=== PATIENT | female | born 1975 | race Caucasian/White ===

== ENCOUNTER 2018-08-25 09:27 | Emergency (ER) | payer MEDICAID, SELFPAY ==
[2018-08-25 09:29] VITALS: BP 122/40; PULSE 117; RESP 18; TEMP 36.6; O2SAT 100; BMI 22.2
--- NOTE | 2018-08-25 10:02 | EKG12_ITS ---
Test Reason : GENERAL ILLNESS Blood Pressure : / mmHG Vent. Rate : 096 BPM Atrial Rate : 096 BPM P-R Int : 140 ms QRS Dur : 084 ms QT Int : 394 ms P-R-T Axes : 079 033 036 degrees QTc Int : 497 ms Normal sinus rhythm Biatrial enlargement Possible Lateral infarct , age undetermined Abnormal ECG Confirmed by KATHY DUKES, BULL ([id number]), video tape editor ABRAHAM MARTE ([id number]) on 08/27/2018 9:16:16 AM Referred By: CARMEN Confirmed By:BULL CHAVEZ MD
--- NOTE | 2018-08-25 10:15 | RAD_ITS ---
STUDY: X-RAY CHEST REASON FOR EXAM: Female, 42 years old. Chest pain and shortness of breath. TECHNIQUE: Single AP portable view of the chest. COMPARISON: None. FINDINGS: The lungs are clear and expanded. There is no demonstrated pleural abnormality. Normal size heart. Normal mediastinum and chandra. Normal visualized pulmonary arteries. Normal visualized aortic arch and descending thoracic aorta. Normal visualized thoracic spine. Normal visualized ribs, clavicles, and shoulders. There is no demonstrated abnormality of the visualized soft tissue structures of the upper abdomen. RAD/Chest 1 View (Portable) IMPRESSION: Normal x-ray examination of the chest. Electronically Signed: Yvon Cabral, at 10:40 EDT , Service support ,
[2018-08-25] MEDS: Ondansetron 4 MG/2 ML Vial IV (10:35)
[2018-08-25] MEDS: 0.9% Normal Saline 1,000 ML 1000 ML IV (10:35)
[2018-08-25] MEDS: Ketorolac 30 MG/ML Syringe IV (10:36)
[2018-08-25 10:39] VITALS: BP 159/98; PULSE 100; RESP 20; O2SAT 100
[2018-08-25 10:47] LABS: Absolute Lymphocyte Count 1.09 X10^3/ul (0.83-4.51); Absolute Neutrophil Count 6.1 X10^3/uL (2.0-7.7); Basophil# 0.01 X10^3/uL; Basophil% 0.1 % (0-1); Eosinophil# 0.02 X10^3/uL; Eosinophils% 0.3 % (0-5); Hematocrit 44.6 % (37-47); Hemoglobin 16.1 g/dl (12.0-15.0); Lymphocyte # 1.09 X10^3/ul (4.0); Lymphocyte % 14.2 % (19-41); Mean Corp Hgb Conc 36.1 g/gl (32-36); Mean Corpuscular Volume 85.9 fL (81-99); Mean Platelet Vol. 8.5 fl (6.2-12.0); Monocyte# 0.45 X10^3/uL; Monocyte% 5.8 % (0-10); Neutrophil % 79.2 % (47-70); Platelet Count 453 K/mm3 (150-450); RBC Distribution Width CV 12.1 % (11.6-14.6); RBC Distribution Width SD 37.8 fl (35.1-43.9); Red Blood Count 5.19 M/mm3 (4.2-5.4); White Blood Count 7.7 K/mm3 (4.4-11.0)
[2018-08-25 10:48] LABS: POSITIVE COUNT NO; POSITIVE DIFFERENTIAL NO; POSITIVE MORPHOLOGY NO
[2018-08-25 11:00] LABS: Internal QC Validated? YES +Cl - CLEAR BKGD; Pregnancy, Serum, hCG Quali. NEGATIVE Negative
[2018-08-25 11:04] LABS: D-Dimer Quantitative (DVT/PE) < 0.27 FEU/ug/m (0.27-0.49)
[2018-08-25 11:11] LABS: ALB/GLOB Ratio 1.1 RATIO (0.9-2.4); AST(SGOT) 16 U/L (15-37); Alanine Aminotransfer ALT/SGPT 41 U/L (13-56); Albumin, Serum 4.3 g/dL (3.2-5.0); Alkaline Phosphatase 92 U/L (45-117); Anion Gap 13 (5-15); BUN 17 mg/dL (7-18); Calcium,Total 9.7 mg/dL (8.5-10.1); Chloride 103 mmol/L (98-107); Creatinine, Serum 0.94 mg/dL (0.55-1.02); EST Glomerular Filtration Rate 69 mL/min (>60); Est Glom Filt Rate - Afr Amer 83 mL/min (>60); Estimated Creatinine Clearance 81.48 ml/min; Globulin 3.9 g/dL (2.2-4.2); Glucose 110 mg/dL (74-106); Potassium 3.4 mmol/L (3.5-5.1); Protein, Total 8.2 g/dL (6.4-8.2); Sodium Level 139 mmol/L (136-145)
--- NOTE | 2018-08-25 12:23 | ED.DCSUM_ITS ---
- ER Visit Summary Date of Service: 08/25/18 Chief Complaint: Chest pain History of Present Illness: The patient is a [address] Torres. She reports that she has chest pain that began 2 days ago. It is a constant pain is 9 out of 10 severity. This is unchanged by exertion. It is worsened by deep breaths or movement. Nothing makes this better. She reports the nausea from the ones. No blood or emesis. She does report she is been mildly short of breath. She denies any diaphoresis. Of note patient reports she was discharged from [facility] yesterday after a 9-day stay following being confused after snorting heroin. She denies any IV drug abuse for approximately 3 years. Physical Examination: Vitals: Stable. Afebrile. General: Well-nourished and well-developed. Head: Normocephalic atraumatic. Neck: Supple, no lymphadenopathy. No JVD. Nontender. Cardiovascular: Regular rate and rhythm. No murmurs. Respiratory: No respiratory distress. Clear to auscultation bilaterally. Mild tenderness palpation of costochondral margin bilaterally does reproduce her pain. Abdominal: Soft, nontender, nondistended, normal bowel sounds. No guarding, rebound, or peritoneal signs. Back: Nontender. Extremities: Nontender, no edema. Skin: Normal color, no rash. No track butt. Neurologic: Alert and oriented ?3. Cranial nerves II through XII are intact. Normal strength and sensation. Psych: Normal affect. Test Results: EKG is sinus at [address] changes. There is no old EKG for comparison. Troponin is negative. D-dimer is negative. test is negative. LFTs marked total bili 1.5. Chem-7 marked potassium 3.4 and glucose 110. CBC is marked for a hemoglobin of 16.1, 7 neutrophils 79, monocytes 14. Chest x-ray is normal. Emergency Department Course and Treatment: Patient was treated Zofran and Toradol IV. She is resting comfortably. Treatment Plan: Patient has had 2 days of constant chest pain is not exertional. I feel she is a suitable candidate for further outpatient evaluation. Should be discharged with Zofran and naproxen. Instructed to follow-up her primary care physician 1 to 2 days if not improving. Return to the emergency department for any worsening symptoms. Disposition: To home in improved and stable condition. Impression: 1. Atypical chest pain. This note was generated with Ac[employer] dictation software. It may contain incorrect words, spelling, and punctuation that were not noted in review of the chart prior to signing ED Disposition - Plan for ED Patient: Disposition: Home or Assisted Living Instructions: ED Chest Pain Atypical Unkn Cause Prescriptions: Ondansetron [Zofran Odt] 4 mg PO Q8H PRN PRN #10 tablet PRN Reason: Nausea Naproxen [Naprosyn] 500 mg PO BID #14 tablet Referrals: Doctor,Your [STAFF PHYSICIAN] - 3-5 Days
[2018-08-25 12:51] VITALS: BP 141/78; PULSE 87; RESP 16; O2SAT 97
== END 2018-08-25 12:52 | disposition home or self-care (01) ==
LOC: ED 10:53
PROVIDERS: Emergency Provider Emergency Medicine
DX: R07.89 Other chest pain (principal); R11.2 Nausea with vomiting, unspecified; R53.1 Weakness; R06.02 Shortness of breath; I10 Essential (primary) hypertension; F17.210 Nicotine dependence, cigarettes, uncomplicated
CPT/HCPCS: 71045; 80053; 84484; 84703; 85025; 85379; 93005; 96361; 96374; 96375; 99285; J7030; A4216; J2405

== ENCOUNTER 2019-01-03 14:07 | Emergency (ER) | payer MEDICAID, SELFPAY ==
[2019-01-03 14:08] VITALS: BP 123/82; PULSE 112; RESP 16; TEMP 36.6; O2SAT 100; BMI 25.1
[2019-01-03 14:21] VITALS: BP 131/70; PULSE 90; RESP 14; TEMP 36.6; O2SAT 98
--- NOTE | 2019-01-03 14:40 | ED.VISSUMM ---
- ER Visit Summary Date of Service: 01/03/19 Chief Complaint: Vaginal discharge and vaginal welts no history of prior STD. History of Present Illness: The patient is a 43 F with a past medical history depression. States that she has a 5-day history of vaginal welts. Also vaginal discharge. She denies bleeding. She denies any history of STD. She denies any dysuria. States she is never had anything like this before. Physical Examination: No acute distress vital vital signs and afebrile. HEENT exam unremarkable. Neck nontender. Lungs clear to auscultation bilaterally. Heart regular rhythm no murmur. Abdomen is soft and nontender. Normal bowel sounds no peritoneal signs. Remedies moves all 4. Skin unremarkable. Back unremarkable. Neurologically she is awake and alert. Pelvic exam will be done with female nurse present in the room. Acute herpetic outbreak. She also was discharged treatment complete the speculum or bimanual exam due to the amount of pain she is having. She does appear to be discharged. No vaginal bleeding. Test Results: None Emergency Department Course and Treatment: Patient be treated for the vaginal discharge is potentially gonorrhea chlamydia. Severe with Rocephin and Zithromax. Patient was started on Famvir for an acute herpetic outbreak. Treatment Plan: Famvir 3 times daily for 1 week. Follow-up with POLITICAL SCIENCE RESEARCH ASSISTANT. Disposition: dc Impression: Acute vaginal lesion secondary to acute initial herpes outbreak Vaginal discharge rule out gonorrhea and/or chlamydia This note was generated with [email or web address] dictation software. It may contain incorrect words, spelling, and punctuation that were not noted in review of the chart prior to signing ED Disposition - Plan for ED Patient: Referrals: [facility] Doctor,Out of [NON-STAFF] -
--- NOTE | 2019-01-03 16:18 | ED.DEP ---
ED Disposition - Plan for ED Patient: Disposition: Home or Assisted Living Instructions: Herpes Genitalis, Hsv: Type Ii Prescriptions: Famciclovir [Famvir] 500 mg PO TID #21 tab Prescription Printed Hydrocodone/Acetaminophen [[place] 7.5-325 Tablet] 1 ea PO 4X/DAY PRN PRN 5 Days #20 tab PRN Reason: Pain/Inflammation Prescription Printed Referrals: Rosamaria Vazquez MD [STAFF PHYSICIAN] - As soon as possible Additional Instructions: Famvir used to treat the herpes outbreak. [place] and Motrin for pain. Worn all sexual partners to be checked. The discharge could potentially be diarrhea chlamydia you were treated for both with the Rocephin shot and the oral Zithromax. You need to follow-up with your COMMERCIAL DRONE SOFTWARE DEVELOPER doctor for further evaluation.
[2019-01-03] MEDS: Azithromycin 250 MG Tablet 1000 MG PO (16:58)
[2019-01-03] MEDS: Ceftriaxone 500 MG Vial 250 MG IM (16:58)
[2019-01-03 17:03] VITALS: RESP 16
== END 2019-01-03 17:26 | disposition home or self-care (01) ==
PROVIDERS: Emergency Provider Emergency Medicine
DX: B00.9 Herpesviral infection, unspecified (principal)
CPT/HCPCS: 96372; 99283

== ENCOUNTER 2020-04-11 14:54 | Inpatient (IN) | payer MEDICAID, SELFPAY ==
[2020-04-11 14:55] VITALS: BP 135/95; PULSE 100; RESP 18; TEMP 35.4; O2SAT 100; BMI 25.8
--- NOTE | 2020-04-11 15:23 | ED.RN ---
PER DR RODRIGEZ, NO SITTER NEEDED. PT REQUESTING ASSISTANCE WITH SUBSTANCE ABUSE
--- NOTE | 2020-04-11 15:32 | ED.VIS.GEN ---
History of Present Illness Chief Complaint: Substance Abuse Past Medical History - Allergies and Home Meds Allergies/Adverse Reactions: Allergies No Known Allergies Allergy (Verified 04/11/20 14:54) Primary Care Physician: Óscar Davidson MD [Primary Care Provider] - Smoking Status: Current every day smoker Physical Exam Vital Signs/Narrative: Vital Signs Temp Pulse Resp BP Pulse Ox 04/11/20 14:55 95.8 F L 100 18 135/95 H 100 ED Disposition - Plan for ED Patient: Referrals: Óscar Davidson MD [Primary Care Provider] -
--- NOTE | 2020-04-11 15:33 | ED.DCSUM_ITS ---
History of Present Illness Chief Complaint: Substance Abuse Informant: Patient Narrative: 44-year-old female presents for the evaluation of heroin withdrawal. Patient has been using heroin on and off for years. She states that she last tried to get clean a couple years ago and was sporadically using. Now she has been using pretty consistently for about 5 weeks but does not want to keep using so in the past week she has decided to cut back. She states that she feels paresthesias nausea fatigue headache. She states that she called [facility] and they recommended her starting in the emergency department. She denies suicidal homicidal ideation. She takes Cymbalta and hydroxyzine for anxiety depression. Past Medical History - Allergies and Home Meds Allergies/Adverse Reactions: Allergies No Known Allergies Allergy (Verified 04/11/20 14:54) Primary Care Physician: Óscar Davidson MD [Primary Care Provider] - Past Medical History: - - Depression and anxiety. Opiate abuse Surgical History: noncontributory Smoking Status: Current every day smoker Alcohol: Rare Drugs: Heroin Review of Systems General: Reports: Chills, Malaise. Denies: Fever, Sweats Eyes: Denies: Visual changes - bilaterally, Diplopia ENT: Denies: Rhinorrhea, Sore throat Cardiovascular: Denies: Chest pain, Palpitations Respiratory: Denies: Dyspnea, Cough, Dyspnea on exertion Gastrointestinal: Reports: Nausea. Denies: Abdominal pain, Vomiting, Diarrhea, Melena, Hematochezia Genitourinary: Denies: Dysuria, Hematuria, Frequency Musculoskeletal: Reports: Myalgias. Denies: Back pain, Extremity Pain Skin: Denies: Rash, Wounds Neurological: Reports: Headache. Denies: Weakness, Numbness Physical Exam Vital Signs/Narrative: Vital Signs Temp Pulse Resp BP Pulse Ox 04/11/20 14:55 95.8 F L 100 18 135/95 H 100 Inital Vital Signs reviewed: Yes General: Well nourished, Well developed, No Acute Distress Head: Normocephalic, Atraumatic Eyes: Perrl, EOMI ENT: Moist mucous membranes, No rhinorrhea Neck: Supple, Nontender Cardiovascular: Regular rate, Regular rhythm, No murmurs Respiratory: No distress, CTA bilaterally, Chest nontender Abdomen: Soft, Nontender, Nondistended, Normal bowel sounds Back: Nontender, Normal Inspection Extremities: Nontender, No edema Skin: Normal color, No rash Neurological: Alert, Oriented x3, Cranial nerves II-XII grossly intact, Normal Strength, Normal Sensation Psychological: Normal affect, Normal Mood Diagnostic/Tx/Re-eval - EKG Initial EKG Interpretation: Sinus Rhythm - EKG demonstrates a normal sinus rhythm at a rate of 75 without a concerning features of ACS - Medical Decision Making Patient states that she is amendable to the rules and regulations of inpatient rehab. Hospitalist will be contacted. ED Disposition - Plan for ED Patient: Disposition: Acute Care Hospital [facility] Diagnosis: Opiate withdrawal, Opiate addiction Referrals: Óscar Davidson MD [Primary Care Provider] -
--- NOTE | 2020-04-11 15:49 | EKG12_ITS ---
Test Reason : DRUG USUAGE Blood Pressure : / mmHG Vent. Rate : 075 BPM Atrial Rate : 075 BPM P-R Int : 154 ms QRS Dur : 088 ms QT Int : 412 ms P-R-T Axes : 062 021 028 degrees QTc Int : 460 ms Normal sinus rhythm Normal ECG Confirmed by POOJA DUKES, COLUMBA ([id number]), manuscript editor MALAIKA SALAZAR ([id number]) on 04/16/2020 11:09:02 AM Referred By: RAIN Confirmed By:GEORGIA PATTON MD
--- NOTE | 2020-04-11 16:28 | NURSING ---
MED SURG ENRIQUEONIS OPIATE ADDICTION/ WITHDRAWAL
[2020-04-11 16:29] VITALS: BP 124/81; PULSE 84; RESP 18; TEMP 36.4; O2SAT 100
[2020-04-11 16:30] VITALS: BP 124/81; PULSE 84; RESP 18; TEMP 36.4; O2SAT 100
[2020-04-11 16:33] VITALS: BMI 25.8
[2020-04-11 16:34] LABS: Absolute Lymphocyte Count 1.17 X10^3/uL (0.83-4.51); Absolute Neutrophil Count 3.7 X10^3/uL (2.0-7.7); Basophil# 0.01 X10^3/uL; Basophil% 0.2 % (0-1); Eosinophil# 0.03 X10^3/uL; Eosinophils% 0.6 % (0-5); Hematocrit 40.3 % (37-47); Hemoglobin 13.2 g/dL (12.0-15.0); Lymphocyte # 1.17 X10^3/ul (4.0); Lymphocyte % 22.6 % (19-41); Mean Corp Hgb Conc 32.8 g/dL (32-36); Mean Corpuscular Hgb 28.8 pg (27.0-32.0); Mean Corpuscular Volume 87.8 fL (81-99); Mean Platelet Vol. 8.2 fl (6.2-12.0); Monocyte# 0.27 X10^3/uL; Monocyte% 5.2 % (0-10); NRBC Flagged by Analyzer 0 % (0-5); Neutrophil # 3.68 X10^3/uL (2.7-7.7); Platelet Count 275 K/mm3 (150-450); RBC Distribution Width CV 12.3 % (11.6-14.6); RBC Distribution Width SD 39.7 fl (35.1-43.9); Red Blood Count 4.59 M/mm3 (4.2-5.4); White Blood Count 5.2 K/mm3 (4.4-11.0)
[2020-04-11 16:41] LABS: Internal QC Validated? YES +Cl - CLEAR BKGD; Pregnancy, Serum, hCG Quali. NEGATIVE Negative
--- NOTE | 2020-04-11 16:42 | PCM.HP.STD ---
History of Present Illness Date of Admission: 04/11/20 Chief Complaint: Opiate withdrawal The patient is a 44 year old F with a PMH as below who presents to the hospital with opiate withdrawal. She states that she uses IV heroin and then transition to snorting heroin, she has been trying to get off of it herself and been tapering however she started having some increased symptoms with anxiety and restlessness as well as nausea. Her last use was this morning which she states has helped a little bit but she still with significant symptoms. She denies any other medical issues other than depression and anxiety which she takes medications for. She is willing to follow-up with [facility] as an outpatient for rehab as necessary. Past Medical History Allergies No Known Allergies Allergy (Verified 04/11/20 14:54) Home Medications: Ambulatory Orders Medication Instructions Recorded Duloxetine HCl 60 mg PO DAILY 04/11/20 Hydroxyzine HCl 50 mg PO Q6H PRN 04/11/20 Surgical History: noncontributory Smoking Status: Current every day smoker Tobacco Use: Cigarettes Alcohol: Rare Drugs: Heroin - *Family History Maternal History Items: Cancer Paternal History Items: Cancer Review of Systems Constitutional: Reports: Fatigue. Denies: Chills, Fever, Weight Change HEENT: Reports: Head Aches. Denies: Sinus Congestion, Sinus Drainage Cardiovascular: Denies: Chest Pain, Palpitations Respiratory: Denies: Cough, Shortness of breath at rest, Sputum production Gastrointestinal: Reports: Nausea. Denies: Abdominal Pain, Vomiting Genitourinary: Denies: Dysuria Musculoskeletal: Denies: Joint Pain, Joint Tenderness Skin: Denies: Rash, Wounds Neurological: Denies: Numbness, Tingling, Focal weakness Psychiatric: Reports: Anxiety. Denies: Depression Hematologic/ Lymphatic: Denies: Easy Bruising, Easy Bleeding VTE Information - Inpt Only VTE Present on Admission: No - Physical Exam Vitals/I&O's: Vital Signs Temp Pulse Resp BP Pulse Ox 97.5 F L 84 18 124/81 H 100 04/11/20 16:30 04/11/20 16:30 04/11/20 16:30 04/11/20 16:30 04/11/20 16:30 Oxygen Delivery Method Room Air Weight: 175 lb Body Mass Index (BMI) 25.8 General: Alert, Oriented x3, Cooperative, No apparent distress, - HEENT: Atraumatic, PERRLA, EOMI, Normocephalic Oral: Moist Mucosa Neck: Supple, No JVD Lungs: Clear to auscultation, Normal air movement, No rhonchi, No wheeze, No rales Cardiovascular: Regular rate, Regular Rhythm, Normal S1, Normal S2, No murmurs Abdomen: Soft, Non Tender, Non-Distended, No Hepato-splenomegaly Extremities: No edema, Capillary Refill Less than 3 Seconds Skin: No rashes, No breakdown Neurological: Neuro grossly intact, Sensory exam intact to light touch and pain Psych/Mental Status: Anxious, Restless Laboratory Results 04/11/20 16:25: WBC 5.2, RBC 4.59, Hgb 13.2, Hct 40.3, MCV 87.8, MCH 28.8, MCHC 32.8, RDW Std Deviation 39.7, RDW Coeff of Kera 12.3, Plt Count 275, MPV 8.2, Immature Gran % (Auto) 0.400, Neut % (Auto) 71.0 H, Lymph % (Auto) 22.6, [place] % (Auto) 5.2, Eos % (Auto) 0.6, Baso % (Auto) 0.2, Absolute Neuts (auto) 3.7, Absolute Lymphs (auto) 1.17, Nucleated RBC % 0 04/11/20 16:25: Sodium Pending, Potassium Pending, Chloride Pending, Carbon Dioxide Pending, Anion Gap Pending, BUN Pending, Creatinine Pending, Est GFR (MDRD) Af Amer Pending, Est GFR (MDRD) Non-Af Pending, BUN/Creatinine Ratio Pending, Glucose Pending, Calcium Pending, Total Bilirubin Pending, AST Pending, ALT Pending, Alkaline Phosphatase Pending, Total Protein Pending, Albumin Pending 04/11/20 16:25: Ethyl Alcohol Pending 04/11/20 16:25: Serum , Qual NEGATIVE Assessment/Plan All Active Problems Opiate withdrawal (Acute) Opiate addiction (Acute) 1. Acute opiate withdrawal/tobacco abuse/anxiety/depression -We will continue with her Cymbalta -Continue with the opiate withdrawal protocol -Follow-up with [facility] -Discussed tobacco cessation, she does not want a nicotine patch at this time DVT: Ambulation Inpatient E&M: 46336 Init Hosp L2
--- NOTE | 2020-04-11 16:42 | PCS.PANDOC ---
PANDEMIC DOCUMENTATION INITIATED: Date: 04/11/2020 Time: 1640
[2020-04-11 16:44] LABS: Alcohol, Blood (Medical)-Serum < 3.0 mg/dL
[2020-04-11 16:49] LABS: ALB/GLOB Ratio 1.1 RATIO (0.9-2.4); AST(SGOT) 11 U/L (15-37); Alanine Aminotransfer ALT/SGPT 28 U/L (13-56); Albumin, Serum 3.4 g/dL (3.2-5.0); Alkaline Phosphatase 83 U/L (45-117); Anion Gap 5 (5-15); BUN 6 mg/dL (7-18); BUN/Creat Ratio 8.6 RATIO (10-20); Calcium,Total 8.6 mg/dL (8.5-10.1); Chloride 107 mmol/L (98-107); Creatinine, Serum 0.69 mg/dL (0.55-1.02); EST Glomerular Filtration Rate 97 mL/min (>60); Est Glom Filt Rate - Afr Amer 118 mL/min (>60); Estimated Creatinine Clearance 108.73 ml/min; Globulin 3.2 g/dL (2.2-4.2); Glucose 98 mg/dL (74-106); Potassium 3.4 mmol/L (3.5-5.1); Protein, Total 6.6 g/dL (6.4-8.2); Sodium Level 140 mmol/L (136-145)
[2020-04-11 16:56] VITALS: BMI 24.9
[2020-04-11 17:01] VITALS: BP 114/80; PULSE 70; RESP 16; TEMP 36.9; O2SAT 100
[2020-04-11] MEDS: Ondansetron 8 MG Tablet PO (17:32)
[2020-04-11] MEDS: Methocarbamol 750 MG Tablet 1500 MG PO (17:32)
[2020-04-11] MEDS: Buprenorphine HCl 2 MG TAB.SUBL SL (17:32)
[2020-04-11] MEDS: Acetaminophen 325 MG Tablet 650 MG PO (20:23)
[2020-04-11] MEDS: hydrOXYzine PAM 25 MG Capsule 50 MG PO (20:23)
[2020-04-11] MEDS: traZODone 100 MG Tablet PO (22:42)
[2020-04-11 23:00] VITALS: BP 110/63; PULSE 83; RESP 16; TEMP 37.2; O2SAT 100
[2020-04-12] MEDS: Buprenorphine HCl 2 MG TAB.SUBL SL ×3 (01:22→17:58)
[2020-04-12 04:25] VITALS: BP 116/67; PULSE 79; RESP 16; TEMP 36.8; O2SAT 99
--- NOTE | 2020-04-12 08:00 | PCM.PN.HOSP ---
Reason for Visit: Follow-up for ACUTE opioid withdrawal syndrome Objective: Patient is admitted with acute opioid withdrawal syndrome. Patient currently uses heroin through his snorting but was using IV in the past. Denies history of HIV, chronic hep C or hep B. Denies any serious complication including osteomyelitis, endocarditis. She had one abscess on the left forearm in the past She feels anxious and restlessness, muscle aches and nausea. Denies hallucinations or delusions. Physical exam General: Alert, Oriented x3, Cooperative HEENT: Atraumatic, PERRLA, EOMI, Normocephalic Oral: No Gingival or Mucosal Lesions/ Ulcerations Neck: Supple, No JVD, Negative Carotid Bruits Lungs: Air entry equal in bilateral lung bases. No crepitation/rhonchi Cardiovascular: Regular rate, Regular Rhythm, Normal S1, Normal S2, No murmurs Abdomen: Bowel Sounds Present, Soft, Non Tender, Non-Distended : No renal angle tenderness. No suprapubic tenderness. Extremities: No edema, Capillary Refill Less than 3 Seconds Skin: No rashes, No breakdown Musculoskeletal: No Tenderness to Palpation of Joints or Extremities Neurological: Cranial nerves II-XII grossly intact, Deep Tendon Reflexes 2+/4 and Symmetrical, Neuro grossly intact Psych/Mental Status: Normal Affect, Appropriate. Vitals/I&O's: Vital Signs Temp Pulse Resp BP Pulse Ox 98.3 F 79 16 116/67 99 04/12/20 04:25 04/12/20 04:25 04/12/20 04:25 04/12/20 04:25 04/12/20 04:25 Oxygen Delivery Method Room Air Weight: 168 lb 10.458 oz Body Mass Index (BMI) 24.9 Intake and Output for Last 24 Hours 04/10/20 04/11/20 04/12/20 23:59 23:59 23:59 Intake Total 250 / 1050 1040 / 1040 Balance 250 / 1050 1040 / 1040 Laboratory Results 04/11/20 16:25: WBC 5.2, RBC 4.59, Hgb 13.2, Hct 40.3, MCV 87.8, MCH 28.8, MCHC 32.8, RDW Std Deviation 39.7, RDW Coeff of Kera 12.3, Plt Count 275, MPV 8.2, Immature Gran % (Auto) 0.400, Neut % (Auto) 71.0 H, Lymph % (Auto) 22.6, [place] % (Auto) 5.2, Eos % (Auto) 0.6, Baso % (Auto) 0.2, Absolute Neuts (auto) 3.7, Absolute Lymphs (auto) 1.17, Nucleated RBC % 0 04/11/20 16:25: Sodium 140, Potassium 3.4 L, Chloride 107, Carbon Dioxide 28.0, Anion Gap 5, BUN 6 L, Creatinine 0.69, Estim Creat Clear Calc 108.73, Est GFR (MDRD) Af Amer 118, Est GFR (MDRD) Non-Af 97, BUN/Creatinine Ratio 8.6 L, Glucose 98, Calcium 8.6, Total Bilirubin 0.60, AST 11 L, ALT 28, Alkaline Phosphatase 83, Total Protein 6.6, Albumin 3.4, Globulin 3.2, Albumin/Globulin Ratio 1.1 04/11/20 16:25: Ethyl Alcohol < 3.0 04/11/20 16:25: Serum , Qual NEGATIVE Current Medications Acetaminophen (Acetaminophen 325 Mg Tablet) 650 mg PO Q6H PRN PRN PRN Reason: Pain 1-10 or Fever Last Admin: 04/11/20 20:23 Dose: 650 mg Documented by: Buprenorphine HCl (Buprenorphine Hcl 2 Mg Tab.Subl) 4 mg SL Q8H CJ; Taper Stop: 04/14/20 17:29 Last Admin: 04/12/20 01:22 Dose: 4 mg Documented by: Clonidine (Clonidine Hcl 0.1 Mg Tablet) 0.1 mg PO Q8H PRN PRN PRN Reason: RESTLESSNESS Dicyclomine HCl (Dicyclomine 10 Mg Capsule) 20 mg PO Q6H PRN PRN PRN Reason: Abdominal Discomfort Duloxetine HCl (Duloxetine Hcl 60 Mg Capsule) 60 mg PO DAILY CJ Gabapentin (Gabapentin 300 Mg Capsule) 300 mg PO Q8H PRN PRN PRN Reason: moderate to severe anxiety Hydroxyzine Pamoate (Hydroxyzine Jeanine 25 Mg Capsule) 50 mg PO Q6H PRN PRN PRN Reason: mild anxiety Last Admin: 04/11/20 20:23 Dose: 50 mg Documented by: Loperamide HCl (Loperamide 2 Mg Capsule) 2 mg PO Q4H PRN PRN PRN Reason: LOOSE STOOLS Methocarbamol (Methocarbamol 750 Mg Tablet) 1,500 mg PO Q6H PRN PRN PRN Reason: MUSCLE SPASM Last Admin: 04/11/20 17:32 Dose: 1,500 mg Documented by: Nutritional Formula (Lactose Free) (Ensure Enlive 120 Ml Liquid) 120 ml PO 4X/DAY CJ Last Admin: 04/11/20 20:25 Dose: 120 ml Documented by: Ondansetron HCl (Ondansetron 8 Mg Tablet) 8 mg PO Q8H PRN PRN PRN Reason: NAUSEA Last Admin: 04/11/20 17:32 Dose: 8 mg Documented by: Sodium Chloride (0.9% Saline Lock 10 Ml Syringe) 10 - 40 ml IV UD PRN PRN Reason: SALINE FLUSH Trazodone HCl (Trazodone 100 Mg Tablet) 100 mg PO QHS PRN PRN PRN Reason: INSOMNIA Last Admin: 04/11/20 22:42 Dose: 100 mg Documented by: STROKE Vital Signs/Narrative: Vital Signs Temp Pulse Resp BP Pulse Ox 04/12/20 04:25 98.3 F 79 16 116/67 99 Medical Necessity - Tobacco Use Smoking Status: Current every day smoker Tobacco Use: Cigarettes Assessment/Plan All Active Problems Opiate withdrawal (Acute) Opiate addiction (Acute) This 44 question female admitted with acute opioid withdrawal. 1. Acute opiate withdrawal with history of chronic opioid/heroin use disorder, tolerance and dependence: Patient is on buprenorphine and other supportive medications including gabapentin hydroxyzine, methocarbamol as needed. Discontinue IV fluid. Follow-up with 118 hours. 2. Anxiety and depression: Patient on Cymbalta. Also on trazodone at night. 3. Chronic tobacco use/chronic smoking: Discussed tobacco cessation. She does not want nicotine patch. VTE prophylaxis: Low risk early ambulation encouraged. No prophylaxis indicated. Inpatient E&M: 87019 Subs Hosp L2
--- NOTE | 2020-04-12 09:07 | ADDICTION ---
This health science writer attempted to meet with PT in her room to administer ASAM, AUDIT and MSE examinations and to begin planning for discharge. PT requested to complete assessments tomorrow, 04/13/20. This health science writer briefly spoke with PT about d/c plans. PT states that she would like to admit into residential treatment at [facility] upon d/c from [facility]. This health science writer will begin referral process in preparation for meeting tomorrow. [facility] SW and CM notified.
[2020-04-12 09:22] VITALS: BP 99/65; PULSE 73; RESP 16; TEMP 36.4; O2SAT 98
[2020-04-12 09:23] VITALS: PULSE 90
[2020-04-12] MEDS: DULoxetine Hcl 60 MG Capsule PO (09:27)
[2020-04-12] MEDS: Ondansetron 8 MG Tablet PO (09:28)
--- NOTE | 2020-04-12 13:15 | CASEMGMT ---
Social Work Note SW reviewed chart. Mental Health order was placed on 04/11/20 at 14:59. Per nursing documentation at 15:23 on 04/11/2020, pt was cleared for suicide sitter. Pt is RAMP pt. Aminta with [employer] attempted to see pt today, Aminta will be in tomorrow to complete full assessment with pt. Miguelina Newsome [employer] G[employer] MECHANIC, RN PEDIATRIC
[2020-04-12] MEDS: Methocarbamol 750 MG Tablet 1500 MG PO ×2 (13:23→21:29)
[2020-04-12] MEDS: Dicyclomine 10 MG Capsule 20 MG PO ×2 (13:23→21:29)
[2020-04-12] MEDS: Gabapentin 300 MG Capsule PO ×2 (13:24→21:29)
[2020-04-12 16:37] VITALS: BP 103/62; PULSE 80; RESP 16; TEMP 37.4; O2SAT 99
[2020-04-12 22:00] VITALS: BP 100/50; PULSE 82; RESP 16; TEMP 36.9; O2SAT 96
[2020-04-13] MEDS: traZODone 100 MG Tablet PO ×2 (01:40→23:13)
[2020-04-13] MEDS: Buprenorphine HCl 2 MG TAB.SUBL SL ×3 (01:40→17:07)
[2020-04-13 04:00] VITALS: BP 99/52; PULSE 82; RESP 16; TEMP 37.1; O2SAT 97
--- NOTE | 2020-04-13 08:43 | PN_ITS ---
Reason for Visit: Follow-up for acute opioid withdrawal Objective: Patient still feels nauseous but no vomiting. Diffuse body aches and pains Physical exam General: Alert, Oriented x3, Cooperative HEENT: Atraumatic, PERRLA, EOMI, Normocephalic Oral: No Gingival or Mucosal Lesions/ Ulcerations Neck: Supple, No JVD, Negative Carotid Bruits Lungs: Air entry diminished in bilateral lung bases. No crepitation/rhonchi Cardiovascular: Regular rate, Regular Rhythm, Normal S1, Normal S2, No murmurs Abdomen: Bowel Sounds Present, Soft, Non Tender, Non-Distended : No renal angle tenderness. No suprapubic tenderness. Extremities: No edema, Capillary Refill Less than 3 Seconds Skin: No rashes, No breakdown Musculoskeletal: No Tenderness to Palpation of Joints or Extremities Neurological: Cranial nerves II-XII grossly intact, Deep Tendon Reflexes 2+/4 and Symmetrical, Neuro grossly intact Psych/Mental Status: Normal Affect, Appropriate. Vitals/I&O's: Vital Signs Temp Pulse Resp BP Pulse Ox 98.7 F 82 16 99/52 L 97 04/13/20 04:00 04/13/20 04:00 04/13/20 04:00 04/13/20 04:00 04/13/20 04:00 Oxygen Delivery Method Room Air Weight: 168 lb 10.458 oz Body Mass Index (BMI) 24.9 Intake and Output for Last 24 Hours 04/11/20 04/12/20 04/13/20 23:59 23:59 23:59 Intake Total 250 / 1050 1040 / 1340 780 / 780 Balance 250 / 1050 1040 / 1340 780 / 780 Current Medications Acetaminophen (Acetaminophen 325 Mg Tablet) 650 mg PO Q6H PRN PRN PRN Reason: Pain 1-10 or Fever Last Admin: 04/11/20 20:23 Dose: 650 mg Documented by: Buprenorphine HCl (Buprenorphine Hcl 2 Mg Tab.Subl) 2 mg SL Q8H [facility]; Taper Stop: 04/14/20 17:29 Last Admin: 04/13/20 01:40 Dose: 2 mg Documented by: Clonidine (Clonidine Hcl 0.1 Mg Tablet) 0.1 mg PO Q8H PRN PRN PRN Reason: RESTLESSNESS Dicyclomine HCl (Dicyclomine 10 Mg Capsule) 20 mg PO Q6H PRN PRN PRN Reason: Abdominal Discomfort Last Admin: 04/12/20 21:29 Dose: 20 mg Documented by: Duloxetine HCl (Duloxetine Hcl 60 Mg Capsule) 60 mg PO DAILY [facility] Last Admin: 04/12/20 09:27 Dose: 60 mg Documented by: Gabapentin (Gabapentin 300 Mg Capsule) 300 mg PO Q8H PRN PRN PRN Reason: moderate to severe anxiety Last Admin: 04/12/20 21:29 Dose: 300 mg Documented by: Hydroxyzine Pamoate (Hydroxyzine Jeanine 25 Mg Capsule) 50 mg PO Q6H PRN PRN PRN Reason: mild anxiety Last Admin: 04/11/20 20:23 Dose: 50 mg Documented by: Loperamide HCl (Loperamide 2 Mg Capsule) 2 mg PO Q4H PRN PRN PRN Reason: LOOSE STOOLS Methocarbamol (Methocarbamol 750 Mg Tablet) 1,500 mg PO Q6H PRN PRN PRN Reason: MUSCLE SPASM Last Admin: 04/12/20 21:29 Dose: 1,500 mg Documented by: Nutritional Formula (Lactose Free) (Ensure Enlive 120 Ml Liquid) 120 ml PO 4X/DAY [facility] Last Admin: 04/12/20 21:29 Dose: 120 ml Documented by: Ondansetron HCl (Ondansetron 8 Mg Tablet) 8 mg PO Q8H PRN PRN PRN Reason: NAUSEA Last Admin: 04/12/20 09:28 Dose: 8 mg Documented by: Sodium Chloride (0.9% Saline Lock 10 Ml Syringe) 10 - 40 ml IV UD PRN PRN Reason: SALINE FLUSH Trazodone HCl (Trazodone 100 Mg Tablet) 100 mg PO QHS PRN PRN PRN Reason: INSOMNIA Last Admin: 04/13/20 01:40 Dose: 100 mg Documented by: Medical Necessity - Tobacco Use Smoking Status: Current every day smoker Tobacco Use: Cigarettes Assessment/Plan All Active Problems Opiate withdrawal (Acute) Opiate addiction (Acute) This 44 question female admitted with acute opioid withdrawal. 1. Acute opiate withdrawal with history of chronic opioid/heroin use disorder, tolerance and dependence: Patient is on buprenorphine and other supportive medications including gabapentin hydroxyzine, methocarbamol as needed. Discontinue IV fluid. 04/13: Patient still has withdrawal symptoms and she feels worse than yesterday. Denies hallucinations, delusions or weird dreams. Discussed with the 180 nurse and she requested to keep over the weekend as she is planning for inpatient transfer for drug rehab. 2. Anxiety and depression: Patient on Cymbalta. Continue trazodone at night. 3. Chronic tobacco use/chronic smoking: Discussed tobacco cessation. She does not want nicotine patch. VTE prophylaxis: Low risk early ambulation encouraged. No prophylaxis indicated. Inpatient E&M: [id number] Subs Hosp L2
[2020-04-13 09:07] VITALS: BP 91/54; PULSE 78; RESP 16; TEMP 36.8; O2SAT 96
[2020-04-13] MEDS: Acetaminophen 325 MG Tablet 650 MG PO ×2 (09:21→20:53)
[2020-04-13] MEDS: DULoxetine Hcl 60 MG Capsule PO (09:21)
[2020-04-13] MEDS: Ondansetron 8 MG Tablet PO (09:21)
--- NOTE | 2020-04-13 10:19 | ADDICTION ---
This sba underwriter met with PT in her room to complete ASAM, MSE and DUDIT assessments and to begin d/c planning. All assessments completed, faxed and placed in PT chart. D/C Plan completed- PT to directly admit into [facility] residential on 04/16/20 after completing medical w/d mgmt. This sba underwriter collaborated with PT's hospitalist who confirmed that he will keep her at [facility] until direct admit on 04/16. PT amiable. Residential referral made.
[2020-04-13 13:56] VITALS: BP 104/61; PULSE 82; RESP 16; TEMP 37.3; O2SAT 97
[2020-04-13] MEDS: Gabapentin 300 MG Capsule PO ×2 (14:00→23:15)
[2020-04-13 17:00] VITALS: BP 104/56; PULSE 86; RESP 18; TEMP 36.7; O2SAT 99
[2020-04-13] MEDS: Ibuprofen 600 MG Tablet PO (17:07)
[2020-04-13 20:45] VITALS: BP 102/61; PULSE 78; RESP 18; TEMP 37.1; O2SAT 98
[2020-04-13] MEDS: Senna Tablet 2 TABLET PO (20:53)
[2020-04-13] MEDS: hydrOXYzine PAM 25 MG Capsule 50 MG PO (20:53)
[2020-04-14] VITALS (7 sets, daily range): BP systolic 81–113; BP diastolic 41–73; PULSE 66–87; RESP 16–18; TEMP 36.2–37.5; O2SAT 97–100
[2020-04-14] MEDS: Buprenorphine HCl 2 MG TAB.SUBL SL (05:26)
[2020-04-14] MEDS: 0.9% Normal Saline 1,000 ML 999 ML IV (06:58)
--- NOTE | 2020-04-14 08:47 | NURSING ---
Bolus completed and pt is sitting up in bed eating breakfast. She is encouraged to increase po intake of fluids.
[2020-04-14] MEDS: Dicyclomine 10 MG Capsule 20 MG PO (09:35)
[2020-04-14] MEDS: DULoxetine Hcl 60 MG Capsule PO (09:36)
[2020-04-14] MEDS: Ondansetron 8 MG Tablet PO (13:28)
--- NOTE | 2020-04-14 14:04 | PCM.PN.HOSP ---
Reason for Visit: Follow-up for acute opioid withdrawal Objective: Patient is still having opioid withdrawal syndromes including anxiety, mild tremor, restlessness diffuse body aches and pain although denies hallucinations, delusions or psychological symptoms Physical exam General: Awake, Oriented x3, Cooperative HEENT: Atraumatic, PERRLA, EOMI, Normocephalic Oral: No Gingival or Mucosal Lesions/ Ulcerations Neck: Supple, No JVD, Negative Carotid Bruits Lungs: Air entry equal in bilateral lung bases. No crepitation/rhonchi Cardiovascular: Regular rate, Regular Rhythm, Normal S1, Normal S2, No murmurs Abdomen: Bowel Sounds Present, Soft, Non Tender, Non-Distended : No renal angle tenderness. No suprapubic tenderness. Extremities: No edema, Capillary Refill Less than 3 Seconds Skin: No rashes, No breakdown Musculoskeletal: No Tenderness to Palpation of Joints or Extremities Neurological: Cranial nerves II-XII grossly intact, Deep Tendon Reflexes 2+/4 and Symmetrical, Neuro grossly intact Psych/Mental Status: Normal Affect, Appropriate. Vitals/I&O's: Vital Signs Temp Pulse Resp BP Pulse Ox 98.5 F 70 16 95/51 L 100 04/14/20 13:29 04/14/20 13:29 04/14/20 13:29 04/14/20 13:29 04/14/20 13:29 Oxygen Delivery Method Room Air Weight: 168 lb 10.458 oz Body Mass Index (BMI) 24.9 Intake and Output for Last 24 Hours 04/12/20 04/13/20 04/14/20 23:59 23:59 23:59 Intake Total 1040 / 1340 1380 / 1380 2099 Balance 1040 / 1340 1380 / 1380 2099 Current Medications Acetaminophen (Acetaminophen 325 Mg Tablet) 650 mg PO Q6H PRN PRN PRN Reason: Pain 1-10 or Fever Last Admin: 04/13/20 20:53 Dose: 650 mg Documented by: Al Hydroxide/Mg Hydroxide (Mag Hydrox/Al Hydrox/Simeth 30 Ml Udc) 30 ml PO Q6H PRN PRN PRN Reason: dyspesia Bisacodyl (Bisacodyl 10 Mg Suppository) 10 mg RECTAL DAILY PRN PRN Reason: Constipation Buprenorphine HCl (Buprenorphine Hcl 2 Mg Tab.Subl) 2 mg SL Q12H [facility]; Taper Stop: 04/14/20 17:29 Last Admin: 04/14/20 05:26 Dose: 2 mg Documented by: Clonidine (Clonidine Hcl 0.1 Mg Tablet) 0.1 mg PO Q8H PRN PRN PRN Reason: RESTLESSNESS Dicyclomine HCl (Dicyclomine 10 Mg Capsule) 20 mg PO Q6H PRN PRN PRN Reason: Abdominal Discomfort Last Admin: 04/14/20 09:35 Dose: 20 mg Documented by: Duloxetine HCl (Duloxetine Hcl 60 Mg Capsule) 60 mg PO DAILY [facility] Last Admin: 04/14/20 09:36 Dose: 60 mg Documented by: Gabapentin (Gabapentin 300 Mg Capsule) 300 mg PO Q8H PRN PRN PRN Reason: moderate to severe anxiety Last Admin: 04/13/20 23:15 Dose: 300 mg Documented by: Hydroxyzine Pamoate (Hydroxyzine Jeanine 25 Mg Capsule) 50 mg PO Q6H PRN PRN PRN Reason: mild anxiety Last Admin: 04/13/20 20:53 Dose: 50 mg Documented by: Ibuprofen (Ibuprofen 600 Mg Tablet) 600 mg PO Q8H PRN PRN PRN Reason: Pain Score 1-10 Last Admin: 04/13/20 17:07 Dose: 600 mg Documented by: Loperamide HCl (Loperamide 2 Mg Capsule) 2 mg PO Q4H PRN PRN PRN Reason: LOOSE STOOLS Methocarbamol (Methocarbamol 750 Mg Tablet) 1,500 mg PO Q6H PRN PRN PRN Reason: MUSCLE SPASM Last Admin: 04/12/20 21:29 Dose: 1,500 mg Documented by: Metoclopramide HCl (Metoclopramide 10 Mg Tablet) 10 mg PO Q6H PRN PRN PRN Reason: nausea/vomiting Nicotine (Nicotine 21 Mg Patch) 21 mg TD DAILY [facility] Last Admin: 04/14/20 09:35 Dose: 21 mg Documented by: Nutritional Formula (Lactose Free) (Ensure Enlive 120 Ml Liquid) 120 ml PO 4X/DAY [facility] Last Admin: 04/14/20 13:26 Dose: 120 ml Documented by: Ondansetron HCl (Ondansetron 8 Mg Tablet) 8 mg PO Q8H PRN PRN PRN Reason: NAUSEA Last Admin: 04/14/20 13:28 Dose: 8 mg Documented by: Senna (Senna Tablet) 2 tablet PO QHS PRN PRN Reason: Constipation Last Admin: 04/13/20 20:53 Dose: 2 tablet Documented by: Sodium Chloride (0.9% Saline Lock 10 Ml Syringe) 10 - 40 ml IV UD PRN PRN Reason: SALINE FLUSH Trazodone HCl (Trazodone 100 Mg Tablet) 100 mg PO QHS PRN PRN PRN Reason: INSOMNIA Last Admin: 04/13/20 23:13 Dose: 100 mg Documented by: STROKE Vital Signs/Narrative: Vital Signs Temp Pulse Resp BP Pulse Ox 04/14/20 13:29 98.5 F 70 16 95/51 L 100 Medical Necessity - Tobacco Use Smoking Status: Current every day smoker Tobacco Use: Cigarettes Assessment/Plan All Active Problems Opiate withdrawal (Acute) Opiate addiction (Acute) This 44 question female admitted with acute opioid withdrawal. 1. Acute opiate withdrawal with history of chronic opioid/heroin use disorder, tolerance and dependence: Patient is on buprenorphine and other supportive medications including gabapentin hydroxyzine, methocarbamol as needed. Discontinue IV fluid. 04/13: Patient still has withdrawal symptoms and she feels worse than yesterday. Denies hallucinations, delusions or weird dreams. Discussed with the 180 nurse and she requested to keep over the weekend as she is planning for inpatient transfer for drug rehab. 04/14: Continue buprenorphine along with other supportive medications including gabapentin, duloxetine and methocarbamol. The patient will stay over the weekend for inpatient rehab transfer on Thursday. 2. Anxiety and depression: Patient on Cymbalta. Continue trazodone at night. 3. Chronic tobacco use/chronic smoking: Discussed tobacco cessation. She does not want nicotine patch. VTE prophylaxis: Low risk early ambulation encouraged. No prophylaxis indicated. Active Medications Acetaminophen (Acetaminophen 325 Mg Tablet) 650 mg PO Q6H PRN PRN PRN Reason: Pain 1-10 or Fever Last Admin: 04/13/20 20:53 Dose: 650 mg Documented by: Al Hydroxide/Mg Hydroxide (Mag Hydrox/Al Hydrox/Simeth 30 Ml Udc) 30 ml PO Q6H PRN PRN PRN Reason: dyspesia Bisacodyl (Bisacodyl 10 Mg Suppository) 10 mg RECTAL DAILY PRN PRN Reason: Constipation Buprenorphine HCl (Buprenorphine Hcl 2 Mg Tab.Subl) 2 mg SL Q12H [facility]; Taper Stop: 04/14/20 17:29 Last Admin: 04/14/20 05:26 Dose: 2 mg Documented by: Clonidine (Clonidine Hcl 0.1 Mg Tablet) 0.1 mg PO Q8H PRN PRN PRN Reason: RESTLESSNESS Dicyclomine HCl (Dicyclomine 10 Mg Capsule) 20 mg PO Q6H PRN PRN PRN Reason: Abdominal Discomfort Last Admin: 04/14/20 09:35 Dose: 20 mg Documented by: Duloxetine HCl (Duloxetine Hcl 60 Mg Capsule) 60 mg PO DAILY [facility] Last Admin: 04/14/20 09:36 Dose: 60 mg Documented by: Gabapentin (Gabapentin 300 Mg Capsule) 300 mg PO Q8H PRN PRN PRN Reason: moderate to severe anxiety Last Admin: 04/13/20 23:15 Dose: 300 mg Documented by: Hydroxyzine Pamoate (Hydroxyzine Jeanine 25 Mg Capsule) 50 mg PO Q6H PRN PRN PRN Reason: mild anxiety Last Admin: 04/13/20 20:53 Dose: 50 mg Documented by: Ibuprofen (Ibuprofen 600 Mg Tablet) 600 mg PO Q8H PRN PRN PRN Reason: Pain Score 1-10 Last Admin: 04/13/20 17:07 Dose: 600 mg Documented by: Loperamide HCl (Loperamide 2 Mg Capsule) 2 mg PO Q4H PRN PRN PRN Reason: LOOSE STOOLS Methocarbamol (Methocarbamol 750 Mg Tablet) 1,500 mg PO Q6H PRN PRN PRN Reason: MUSCLE SPASM Last Admin: 04/12/20 21:29 Dose: 1,500 mg Documented by: Metoclopramide HCl (Metoclopramide 10 Mg Tablet) 10 mg PO Q6H PRN PRN PRN Reason: nausea/vomiting Nicotine (Nicotine 21 Mg Patch) 21 mg TD DAILY [facility] Last Admin: 04/14/20 09:35 Dose: 21 mg Documented by: Nutritional Formula (Lactose Free) (Ensure Enlive 120 Ml Liquid) 120 ml PO 4X/DAY [facility] Last Admin: 04/14/20 13:26 Dose: 120 ml Documented by: Ondansetron HCl (Ondansetron 8 Mg Tablet) 8 mg PO Q8H PRN PRN PRN Reason: NAUSEA Last Admin: 04/14/20 13:28 Dose: 8 mg Documented by: Senna (Senna Tablet) 2 tablet PO QHS PRN PRN Reason: Constipation Last Admin: 04/13/20 20:53 Dose: 2 tablet Documented by: Sodium Chloride (0.9% Saline Lock 10 Ml Syringe) 10 - 40 ml IV UD PRN PRN Reason: SALINE FLUSH Trazodone HCl (Trazodone 100 Mg Tablet) 100 mg PO QHS PRN PRN PRN Reason: INSOMNIA Last Admin: 04/13/20 23:13 Dose: 100 mg Documented by: Inpatient E&M: [id number] Subs Hosp L2
[2020-04-14] MEDS: Methocarbamol 750 MG Tablet 1500 MG PO (15:44)
[2020-04-14] MEDS: Ibuprofen 600 MG Tablet PO (15:45)
[2020-04-14] MEDS: Lactated Ringers 1,000 ML 999 ML IV (16:54)
[2020-04-14] MEDS: Gabapentin 300 MG Capsule PO (20:22)
[2020-04-14] MEDS: traZODone 100 MG Tablet PO (22:41)
[2020-04-14] MEDS: Senna Tablet 2 TABLET PO (22:42)
[2020-04-14] MEDS: tiZANidine HCl 2 MG Tablet PO (22:42)
[2020-04-14] MEDS: hydrOXYzine PAM 25 MG Capsule 50 MG PO (22:42)
[2020-04-15 06:31] VITALS: BP 91/50; PULSE 72; RESP 16; TEMP 37; O2SAT 99
--- NOTE | 2020-04-15 08:27 | PN_ITS ---
Reason for Visit: Follow-up for acute withdrawal syndrome secondary to opioids/heroin Objective: Patient has low blood pressure baseline, systolic 100. Patient blood pressure is not much improved even after Ringer lactate bolus given yesterday. Still has significant withdrawal symptoms mainly anxiety, restlessness muscle aches and pains. Patient currently has constipation. Physical exam General: Alert, Oriented x3, Cooperative, lethargic. HEENT: Atraumatic, PERRLA, EOMI, Normocephalic Oral: No Gingival or Mucosal Lesions/ Ulcerations Neck: Supple, No JVD, Negative Carotid Bruits Lungs: Air entry diminished in bilateral lung bases. No crepitation/rhonchi Cardiovascular: Regular rate, Regular Rhythm, Normal S1, Normal S2, No murmurs Abdomen: Bowel Sounds Present, Soft, Non Tender, Non-Distended : No renal angle tenderness. No suprapubic tenderness. Extremities: No edema, Capillary Refill Less than 3 Seconds Skin: No rashes, No breakdown Musculoskeletal: No Tenderness to Palpation of Joints or Extremities Neurological: Cranial nerves II-XII grossly intact, Deep Tendon Reflexes 2+/4 and Symmetrical, Neuro grossly intact Psych/Mental Status: Normal Affect, Appropriate. Vitals/I&O's: Vital Signs Temp Pulse Resp BP Pulse Ox 98.6 F 72 16 91/50 L 99 04/15/20 06:31 04/15/20 06:31 04/15/20 06:31 04/15/20 06:31 04/15/20 06:31 Oxygen Delivery Method Room Air Weight: 168 lb 10.458 oz Body Mass Index (BMI) 24.9 Intake and Output for Last 24 Hours 04/13/20 04/14/20 04/15/20 23:59 23:59 23:59 Intake Total 1380 / 1380 4350 / 4350 Balance 1380 / 1380 4350 / 4350 Current Medications Acetaminophen (Acetaminophen 325 Mg Tablet) 650 mg PO Q6H PRN PRN PRN Reason: Pain 1-10 or Fever Last Admin: 04/13/20 20:53 Dose: 650 mg Documented by: Al Hydroxide/Mg Hydroxide (Mag Hydrox/Al Hydrox/Simeth 30 Ml Udc) 30 ml PO Q6H PRN PRN PRN Reason: dyspesia Bisacodyl (Bisacodyl 10 Mg Suppository) 10 mg RECTAL DAILY PRN PRN Reason: Constipation Clonidine (Clonidine Hcl 0.1 Mg Tablet) 0.1 mg PO Q8H PRN PRN PRN Reason: RESTLESSNESS Dicyclomine HCl (Dicyclomine 10 Mg Capsule) 20 mg PO Q6H PRN PRN PRN Reason: Abdominal Discomfort Last Admin: 04/14/20 09:35 Dose: 20 mg Documented by: Duloxetine HCl (Duloxetine Hcl 60 Mg Capsule) 60 mg PO DAILY [facility] Last Admin: 04/14/20 09:36 Dose: 60 mg Documented by: Gabapentin (Gabapentin 300 Mg Capsule) 300 mg PO Q8H PRN PRN PRN Reason: moderate to severe anxiety Last Admin: 04/14/20 20:22 Dose: 300 mg Documented by: Hydroxyzine Pamoate (Hydroxyzine Jeanine 25 Mg Capsule) 50 mg PO Q6H PRN PRN PRN Reason: mild anxiety Last Admin: 04/14/20 22:42 Dose: 50 mg Documented by: Ibuprofen (Ibuprofen 600 Mg Tablet) 600 mg PO Q8H PRN PRN PRN Reason: Pain Score 1-10 Last Admin: 04/14/20 15:45 Dose: 600 mg Documented by: Loperamide HCl (Loperamide 2 Mg Capsule) 2 mg PO Q4H PRN PRN PRN Reason: LOOSE STOOLS Metoclopramide HCl (Metoclopramide 10 Mg Tablet) 10 mg PO Q6H PRN PRN PRN Reason: nausea/vomiting Nicotine (Nicotine 21 Mg Patch) 21 mg TD DAILY [facility] Last Admin: 04/14/20 09:35 Dose: 21 mg Documented by: Nutritional Formula (Lactose Free) (Ensure Enlive 120 Ml Liquid) 120 ml PO 4X/DAY [facility] Last Admin: 04/14/20 22:41 Dose: 120 ml Documented by: Ondansetron HCl (Ondansetron 8 Mg Tablet) 8 mg PO Q8H PRN PRN PRN Reason: NAUSEA Last Admin: 04/14/20 13:28 Dose: 8 mg Documented by: Senna (Senna Tablet) 2 tablet PO QHS PRN PRN Reason: Constipation Last Admin: 04/14/20 22:42 Dose: 2 tablet Documented by: Sodium Chloride (0.9% Saline Lock 10 Ml Syringe) 10 - 40 ml IV UD PRN PRN Reason: SALINE FLUSH Tizanidine HCl (Tizanidine Hcl 2 Mg Tablet) 2 mg PO Q8H PRN PRN PRN Reason: muscle cramps Last Admin: 04/14/20 22:42 Dose: 2 mg Documented by: Trazodone HCl (Trazodone 100 Mg Tablet) 100 mg PO QHS PRN PRN PRN Reason: INSOMNIA Last Admin: 04/14/20 22:41 Dose: 100 mg Documented by: STROKE Vital Signs/Narrative: Vital Signs Temp Pulse Resp BP Pulse Ox 04/15/20 06:31 98.6 F 72 16 91/50 L 99 Medical Necessity - Tobacco Use Smoking Status: Current every day smoker Tobacco Use: Cigarettes Assessment/Plan All Active Problems Opiate withdrawal (Acute) Opiate addiction (Acute) This 44 question female admitted with acute opioid withdrawal. 1. Acute opiate withdrawal with history of chronic opioid/heroin use disorder, tolerance and dependence: Patient is on buprenorphine and other supportive medications including gabapentin hydroxyzine, methocarbamol as needed. Discontinue IV fluid. 04/13: Patient still has withdrawal symptoms and she feels worse than yesterday. Denies hallucinations, delusions or weird dreams. Discussed with the 180 nurse and she requested to keep over the weekend as she is planning for inpatient transfer for drug rehab. 04/14: Continue buprenorphine along with other supportive medications including gabapentin, duloxetine and methocarbamol. The patient will stay over the weekend for inpatient rehab transfer on Thursday. 04/15: Patient completed buprenorphine last night but still has withdrawal symptoms therefore buprenorphine continued. She has restless leg therefore pramipexole added. Zanaflex added yesterday in place of methocarbamol. Hydroxyzine was decreased because of low blood pressure. Patient has baseline low blood pressure around systolic 100. Senna S, MiraLAX, Dulcolax oral and suppository for constipation. 2. Anxiety and depression: Patient on Cymbalta. Continue trazodone at night. 3. Chronic tobacco use/chronic smoking: Discussed tobacco cessation. She does not want nicotine patch. VTE prophylaxis: Low risk early ambulation encouraged. No prophylaxis indicated. Inpatient E&M: [id number] [facility] [place] Hosp L2
[2020-04-15] MEDS: Ibuprofen 600 MG Tablet PO ×2 (09:02→18:04)
[2020-04-15 09:30] VITALS: BP 100/66; PULSE 78; RESP 16; TEMP 36.4; O2SAT 99
[2020-04-15] MEDS: Pramipexole Di-HCl 0.25 MG Tablet PO ×3 (10:28→22:32)
[2020-04-15] MEDS: Senna/Docusate Sodium 1 Tablet 2 TABLET PO ×2 (10:28→21:17)
[2020-04-15] MEDS: tiZANidine HCl 2 MG Tablet PO ×2 (10:28→22:32)
[2020-04-15] MEDS: Polyethylene Glycol 3350 17 GM PACKET PO (10:28)
[2020-04-15] MEDS: Bisacodyl 5 MG Tablet PO (10:28)
[2020-04-15] MEDS: DULoxetine Hcl 60 MG Capsule PO (10:29)
[2020-04-15] MEDS: Buprenorphine HCl 2 MG TAB.SUBL SL (13:57)
[2020-04-15] MEDS: hydrOXYzine PAM 25 MG Capsule PO ×2 (16:15→22:32)
[2020-04-15 17:00] VITALS: BP 102/54; PULSE 74; RESP 18; TEMP 37; O2SAT 99
[2020-04-15] MEDS: Ondansetron 8 MG Tablet PO (18:04)
[2020-04-15] MEDS: Dicyclomine 10 MG Capsule 20 MG PO (21:18)
[2020-04-15] MEDS: traZODone 100 MG Tablet PO (22:32)
[2020-04-15 23:00] VITALS: BP 123/80; PULSE 80; RESP 16; TEMP 36.9; O2SAT 100
[2020-04-16] MEDS: Buprenorphine HCl 2 MG TAB.SUBL SL (02:01)
[2020-04-16 05:30] VITALS: BP 107/74; PULSE 75; RESP 14; TEMP 36.7; O2SAT 98
[2020-04-16] MEDS: Pramipexole Di-HCl 0.25 MG Tablet PO (05:48)
[2020-04-16 08:41] LABS: Vitamin D,25 Hydroxy 17.8 ng/mL
[2020-04-16 10:00] VITALS: BP 114/61; PULSE 80; RESP 18; TEMP 36.7; O2SAT 97
[2020-04-16] MEDS: DULoxetine Hcl 60 MG Capsule PO (10:06)
[2020-04-16] MEDS: Polyethylene Glycol 3350 17 GM PACKET PO (10:06)
[2020-04-16] MEDS: Senna/Docusate Sodium 1 Tablet 2 TABLET PO (10:07)
[2020-04-16] MEDS: Ibuprofen 600 MG Tablet PO (10:13)
[2020-04-16] MEDS: cloNIDine HCl 0.1 MG Tablet PO (10:13)
--- NOTE | 2020-04-16 10:15 | ADDICTION ---
PT to d/c today. PT plans to directly admit into [facility] inpatient. [facility] to provide transportation at 11:45am. PT amiable.
--- NOTE | 2020-04-16 11:00 | DCINST_ITS ---
You will use the following diet at home:: No restrictions Your food should be the consistency of: Regular Allergies/Adverse Reactions: Allergies No Known Allergies Allergy (Verified 04/11/20 14:54) Medications to take at Discharge Duloxetine HCl 60 mg PO DAILY 04/11/20 Hydroxyzine HCl 50 mg PO Q6H PRN 04/11/20 Primary Care Physician: Óscar Davidson MD [Primary Care Provider] - Within 2 Weeks Test Results: Test results from this visit will be discussed in further detail at your follow- up appointment, if applicable. Please Follow Up With: [facility] When: today Proposed Discharge Date: 04/16/20
--- NOTE | 2020-04-16 11:01 | PCM.DC.SUM ---
Discharge Date and Diagnosis Date of Admission: 04/11/20 Date of Discharge: 04/16/20 - Primary Discharge Diagnosis Acute Problems: acute opiate withdrawal Hospital Course and Treatment Operations: None Procedures: None Summary of Care Provided: The patient is a 44 year old F presents seeking acute opiate withdrawal. Patient uses IV and then resumed to snorting heroin and attempt to taper herself off. On the day of admission, patient had used but was experiencing symptoms. Patient was admitted and started on buprenorphine for acute opiate withdrawal. Patient's course was uncomplicated but patient did complete her buprenorphine taper but still had symptoms so she did receive additional buprenorphine. Patient was evaluated by addiction medicine and plan is for the patient be discharged with 180 today to continue with her addiction treatment. [] - Physical Exam Vitals/I&O's: Vital Signs Temp Pulse Resp BP Pulse Ox 36.7 C 80 18 114/61 97 04/16/20 10:00 04/16/20 10:00 04/16/20 10:00 04/16/20 10:00 04/16/20 10:00 Oxygen Delivery Method Room Air Weight: 76.5 kg Body Mass Index (BMI) 24.9 Intake and Output for Last 24 Hours 04/14/20 04/15/20 04/16/20 23:59 23:59 23:59 Intake Total 4350 / 4350 2150 / 2150 Balance 4350 / 4350 2150 / 2150 General: Alert, No apparent distress HEENT: Atraumatic, Normocephalic Psych/Mental Status: Normal Affect, Appropriate Laboratory Results 04/16/20 04:06: Vitamin D 25-Hydroxy 17.8 Current Medications Acetaminophen (Acetaminophen 325 Mg Tablet) 650 mg PO Q6H PRN PRN PRN Reason: Pain 1-10 or Fever Last Admin: 04/13/20 20:53 Dose: 650 mg Documented by: Al Hydroxide/Mg Hydroxide (Mag Hydrox/Al Hydrox/Simeth 30 Ml Udc) 30 ml PO Q6H PRN PRN PRN Reason: dyspesia Bisacodyl (Bisacodyl 10 Mg Suppository) 10 mg RECTAL DAILY PRN PRN Reason: Constipation Bisacodyl (Bisacodyl 5 Mg Tablet) 5 mg PO DAILY PRN PRN PRN Reason: Severe constipation Last Admin: 04/15/20 10:28 Dose: 5 mg Documented by: Clonidine (Clonidine Hcl 0.1 Mg Tablet) 0.1 mg PO Q8H PRN PRN PRN Reason: RESTLESSNESS Last Admin: 04/16/20 10:13 Dose: 0.1 mg Documented by: Dicyclomine HCl (Dicyclomine 10 Mg Capsule) 20 mg PO Q6H PRN PRN PRN Reason: Abdominal Discomfort Last Admin: 04/15/20 21:18 Dose: 20 mg Documented by: Duloxetine HCl (Duloxetine Hcl 60 Mg Capsule) 60 mg PO DAILY [facility] Last Admin: 04/16/20 10:06 Dose: 60 mg Documented by: Gabapentin (Gabapentin 300 Mg Capsule) 300 mg PO Q8H PRN PRN PRN Reason: moderate to severe anxiety Last Admin: 04/14/20 20:22 Dose: 300 mg Documented by: Hydroxyzine Pamoate (Hydroxyzine Jeanine 25 Mg Capsule) 25 mg PO Q6H PRN PRN PRN Reason: mild anxiety Last Admin: 04/15/20 22:32 Dose: 25 mg Documented by: Ibuprofen (Ibuprofen 600 Mg Tablet) 600 mg PO Q8H PRN PRN PRN Reason: Pain Score 1-10 Last Admin: 04/16/20 10:13 Dose: 600 mg Documented by: Loperamide HCl (Loperamide 2 Mg Capsule) 2 mg PO Q4H PRN PRN PRN Reason: LOOSE STOOLS Metoclopramide HCl (Metoclopramide 10 Mg Tablet) 10 mg PO Q6H PRN PRN PRN Reason: nausea/vomiting Nicotine (Nicotine 21 Mg Patch) 21 mg TD DAILY [facility] Last Admin: 04/16/20 10:16 Dose: Not Given Documented by: Nutritional Formula (Lactose Free) (Ensure Enlive 120 Ml Liquid) 120 ml PO 4X/DAY [facility] Last Admin: 04/16/20 10:06 Dose: Not Given Documented by: Ondansetron HCl (Ondansetron 8 Mg Tablet) 8 mg PO Q8H PRN PRN PRN Reason: NAUSEA Last Admin: 04/15/20 18:04 Dose: 8 mg Documented by: Polyethylene Glycol (Polyethylene Glycol 3350 17 Gm Packet) 17 gm PO DAILY [facility] Last Admin: 04/16/20 10:06 Dose: 17 gm Documented by: Pramipexole Dihydrochloride (Pramipexole Di-Hcl 0.25 Mg Tablet) 0.25 mg PO TID [facility] Last Admin: 04/16/20 05:48 Dose: 0.25 mg Documented by: Senna/Docusate Sodium (Senna/Docusate Sodium 1 Tablet) 2 tablet PO BID CJ Stop: 04/17/20 10:01 Last Admin: 04/16/20 10:07 Dose: 2 tablet Documented by: Sodium Chloride (0.9% Saline Lock 10 Ml Syringe) 10 - 40 ml IV UD PRN PRN Reason: SALINE FLUSH Tizanidine HCl (Tizanidine Hcl 2 Mg Tablet) 2 mg PO Q8H PRN PRN PRN Reason: muscle cramps Last Admin: 04/15/20 22:32 Dose: 2 mg Documented by: Trazodone HCl (Trazodone 100 Mg Tablet) 100 mg PO QHS PRN PRN PRN Reason: INSOMNIA Last Admin: 04/15/20 22:32 Dose: 100 mg Documented by: Discharge Diet: No Restrictions Discharge Activity: Return to Normal Activity Home Medications: Medications to take at Discharge Duloxetine HCl 60 mg PO DAILY 04/11/20 Hydroxyzine HCl 50 mg PO Q6H PRN 04/11/20 Primary Care Physician: Óscar Davidson MD [Primary Care Provider] - Within 2 Weeks Please Follow Up With: [facility] When: today Disposition: Home Minutes spent on discharge:: 24 Patient Condition:: Good Medical Necessity - Tobacco Use Smoking Status: Current every day smoker Tobacco Use: Cigarettes Meaningful Use Info Meaningful Use Diagnoses (Choose all that apply): None applicable Inpatient E&M: 79763 Disch Hosp
--- NOTE | 2020-04-16 11:29 | PHA.DC.MR ---
Pharmacy Service has performed discharge medication reconciliation for this patient. The patient's discharge medication list was reviewed for discrepancies and discrepancies were resolved. Home Medications Duloxetine HCl 60 mg PO DAILY 04/11/20 Hydroxyzine HCl 50 mg PO Q6H PRN 04/11/20
== END 2020-04-16 11:45 | disposition home or self-care (01) | DRG 773 ==
LOC: ED 16:02 → MS3 16:51
PROVIDERS: Internal Medicine; Admitting Provider Family Medicine; Emergency Provider Emergency Medicine; PCP Internal Medicine
DX: F11.23 Opioid dependence with withdrawal (principal); F17.210 Nicotine dependence, cigarettes, uncomplicated; F32.9 Major depressive disorder, single episode, unspecified; F41.9 Anxiety disorder, unspecified; K59.00 Constipation, unspecified; G25.81 Restless legs syndrome
CPT/HCPCS: 80053; 82077; 82306; 84703; 85025; 93005; 97802; 99285; 99406; J7030; J7120; A4216

== ENCOUNTER 2022-07-25 21:13 | Emergency (ER) | payer MEDICAID, SELFPAY ==
[2022-07-25 21:13] VITALS: BP 132/97; PULSE 86; RESP 18; TEMP 36.6; O2SAT 98; BMI 33.5
--- NOTE | 2022-07-25 21:37 | EX.ED.UPPERE ---
HPI History of Present Illness HPI Narrative: 46-year-old female laceration left small finger at 9:15 AM. Chief Complaint: Laceration Informant: patient Occured/Mechanism Mechanism/Context: Yes injury Onset/Context/Timing Onset: Today and Hours Timing: Continuous Quality of Pain: Dull Current Severity: Mild Maximum Severity: Mild Associated Symptoms Associated Symptoms: Negative for Parasthesia, Weakness or Loss of Funtion Narrative Narrative: 46-year-old female [id number]. She was shaving lunchmeat today and got her left pinky finger lacerated at the tip along the nail. This occurred at 9:15 this morning about 12 hours ago. Unsure of her last tetanus shot. Tetanus Immunization: Unknown Prior similar symptoms: No Recent Illness/Hospitalization: No PFSH PFSH Home Medications duloxetine 60 mg capsule,delayed release 60 mg PO DAILY depression 04/11/20 [History Last Taken Unknown] hydroxyzine HCl 50 mg tablet 50 mg PO Q6H PRN Anxiety 04/11/20 [History Last Taken Unknown] Allergy/AdvReac Type Severity Reaction Status Date / Time No Known Allergies Allergy Verified 07/25/22 21:17 Social History Smoking Status: Current every day smoker tobacco type: smokeless tobacco ROS ROS ED ROS Narrative Denies recent illness. Review of Systems ROS Unobtainable: Denies due to encephalopathy Constitutional Constitutional ED: Denies chills or fever(s) Eyes Eyes: Denies blurry vision ENT ENT ED: Denies ear pain Cardiovascular Cardiovascular: Denies chest pain or palpitations Respiratory/Chest Respiratory/Chest: Denies cough or dyspnea Gastrointestinal Gastrointestinal: Denies abdominal pain Genitourinary Genitourinary ED: Denies dysuria or hematuria Musculoskeletal Musculoskeletal: Denies back pain or myalgias Integumentary Denies abscess or Abrasions Neurologic Neurologic: Denies headache(s) Psychiatric Psychiatric: Denies anxiety Endocrine Endocrinology: Denies cold intolerance Hematologic/Lymphatic Hematologic/Lymphatic: Denies easy bleeding Allergic/Immunologic Allergic/Immunologic ED: Denies mouth swelling or tongue swelling EXAM Physical Exam Narrative Exam Narrative: Well-appearing 46-year-old female. Vital signs stable afebrile. HEENT exam unremarkable. Lungs clear. Heart regular rhythm. Abdomen soft nontender. Moving all 4 extremities. Neurovascular intact. Specifically the left hand left small finger on the ulnar side along the nail she shaved about half an inch by 1/4 inch of the skin off. There is mild oozing. There is really nothing to pull together. There is no deep laceration. No tissue to pull together. No signs of infection. Fingers neurovascular intact with normal touch sensation. Cap refill. And range of motion. Const Vital Signs: 07/25/22 21:13 Temperature 97.8 F Temperature Source Temporal Pulse Rate 86 Respiratory Rate 18 Blood Pressure 132/97 H Blood Pressure Mean 108 Pulse Ox 98 Oxygen Delivery Method Room Air Positive well nourished and well developed; Negative for cachectic, contractures or unkempt General Appearance ED: well developed and NAD; Negative for unkempt, cachectic, contractures, cyanotic or diaphoretic Nutritional Appearance: Negative for cachectic HEENT Reports moist mucous membranes normocephalic and atraumatic; Negative for trauma or tenderness Eyes PERRL and EOMs intact bilaterally Neck full ROM and supple General: Negative for tenderness Lymph Lymphatic: Negative for other Chest Wall inspection of chest normal and palpation of chest normal Chest: Negative for other Resp normal respiratory effort and clear to auscultation bilaterally Effort and Inspection: Negative for pain with movement Auscultation: Negative for rales, rhonchi or wheezes Cardio regular rate, regular rhythm, S1 normal heart sound, S2 normal heart sound and no murmurs Rate: Negative for bradycardia or tachycardic Rhythm: Negative for abnormal rhythm GI non-tender, non-distended and no masses Inspection: Negative for abdominal distention Auscultation: normoactive bowel sounds Palpation: soft; Negative for tender or guarding Back/Spine no CVA tenderness Extremity full ROM; Negative for normal to inspection Extremity Narrative: Laceration distal ulnar side, small finger along the nail. Skin shaved off. No laceration repair. Mild oozing. Neurovascularly intact. No infection. No foreign body. Clean. Dermabond repaired. Was dressed and discharged. Neuro oriented x3, moves all extremities and no focal motor deficits Sensorium / Orientation: alert, oriented to person, oriented to place and oriented to time; Negative for orientation impaired, lethargic or stuporous Motor Exam: strength 5/5 throughout Psych mental status grossly normal Appearance: Negative for unkempt Attitude: No agitated Mood & Affect: Negative for depressed, anxious or tearful Skin General Skin Exam: Negative for petechiae Lesions: no lesions Rashes: no rashes Trauma: laceration; Negative for no lacerations or abrasions MDM MDM MDM Narrative Medical decision making narrative: Patient has a small laceration to the ulnar side of the distal end of her small finger along the nail. Did not need suturing. It was cleaned and Dermabond closed. To be dressed she will be discharged. Tetanus will be updated. Dermabond repair was approximately 1 inch. History & Record Review Discussion w/independent historian: Patient Discharge Plan Triage Chief Complaint: Laceration ED Provider: Rodríguez Stiles Dx/Rx/DC Orders Clinical Impression: Finger laceration Instructions: ED Laceration, Extremity: Skin Glue Prescriptions: No Action hydroxyzine HCl 50 MG tablet 50 mg PO Q6H PRN (Reason: Anxiety) Label Comments: Take 1 tablet by mouth every 6 hours as needed for Anxiety. duloxetine 60 MG capsule,delayed release(DR/EC) 60 mg PO DAILY Primary Care Provider: Óscar Davidson Referrals: Óscar Davidson MD [Primary Care Provider] - As Needed Activity Restrictions/Additional Instructions: Leave the dressing on 3 to 4 days as long as this is dry and clean. When you remove its soak it so it comes off more easily. After you take it off just place a Band-Aid on it. Any signs of infection such as redness, streaks, pus or fever return unlikely to be infected. Motrin and Tylenol for pain. Disposition Disposition: Home, Self Care
[2022-07-25] MEDS: Diphth,Pertuss(Acell),Tet Vac 0.5 ML Vial IM (21:45)
== END 2022-07-25 21:56 | disposition home or self-care (01) ==
PROVIDERS: Emergency Provider Emergency Medicine; PCP Internal Medicine; Visit Provider Emergency Medicine
DX: S61.317A Laceration without foreign body of left little finger with damage to nail, initial encounter (principal); W27.4XXA Contact with kitchen utensil, initial encounter; F17.200 Nicotine dependence, unspecified, uncomplicated; Z23 Encounter for immunization
CPT/HCPCS: 12001; 90471; 90715; 99282